=== PATIENT | male | born 1970 | race Caucasian/White ===

== ENCOUNTER 2018-06-22 16:27 | Emergency (ER) | payer MEDICAID, SELFPAY ==
[2018-06-22 16:29] VITALS: BP 118/92; PULSE 91; RESP 17; TEMP 36.7; O2SAT 97; BMI 24.7
--- NOTE | 2018-06-22 16:38 | ED.VISSUMM ---
- ER Visit Summary Date of Service: 06/22/18 Chief Complaint: Abscess History of Present Illness: The patient is a 47 M progressive abscess left axilla over the past week. States had a small one were he popped, however additional informant is larger. Pain with palpation. Previous similar in the past. No fevers. No history of diabetes. No other complaints. Physical Examination: General: Alert and oriented ?3, no acute distress HEENT: Normocephalic, atraumatic. Moist mucosa membranes Neck: supple, nontender. Cardiovascular: Regular rate and rhythm, no murmurs Respiratory: Normal breath sounds, symmetric, no distress Abdomen: Soft, nontender, nondistended Extremities: Nontender, no edema, pulses intact ?4 Neuro: no focal neurological deficits. Skin: Left axilla: 3 x 2 cm slight fluctuant with induration no surrounding erythema. No drainage. Additional 1 cm induration with no surrounding erythema. Mild tender palpation. Test Results: [] Emergency Department Course and Treatment: Patient with 2 abscess, status post incision and drainage ?2. There was no exudative drainage. Loculations were broken and copiously flush. Due to no exudates with inflammatory process, he was placed on Keflex for coverage. Prescriptions written along with Motrin to help with symptoms. Treatment Plan: [] Disposition: Discharge Impression: 1. Left axillary abscess status post incision and drainage This note was generated with [employer] dictation software. It may contain incorrect words, spelling, and punctuation that were not noted in review of the chart prior to signing ED Disposition - Plan for ED Patient: Disposition: Home or Assisted Living Chief Complaint: Abscess Diagnosis: Abscess of left axilla Instructions: ED Abscess IandD Prescriptions: Cephalexin [Keflex] 500 mg PO Q6 #40 capsule Ibuprofen 600 mg PO 4X/DAY #20 tablet Referrals: Derrek Appiah [Primary Care Provider] - 3-5 Days
[2018-06-22] MEDS: Cephalexin 250 MG Capsule 500 MG PO (17:10)
[2018-06-22] MEDS: Ibuprofen 600 MG Tablet PO (17:10)
[2018-06-22 17:15] VITALS: RESP 16
== END 2018-06-22 17:21 | disposition home or self-care (01) ==
PROVIDERS: Emergency Provider Emergency Medicine; Family Provider Family Medicine; PCP Family Medicine
DX: L02.412 Cutaneous abscess of left axilla (principal); Z72.0 Tobacco use
CPT/HCPCS: 10060; 99284

== ENCOUNTER 2018-08-16 13:33 | Emergency (ER) | payer MEDICAID, SELFPAY ==
[2018-08-16 13:34] VITALS: BP 148/71; PULSE 103; RESP 18; TEMP 36.6; O2SAT 98; BMI 24.0
--- NOTE | 2018-08-16 13:43 | RAD_ITS ---
STUDY: X-RAY - RIGHT HAND, ATTENTION FIRST FINGER REASON FOR EXAM: Male, 47 years old. PAIN FOR WEEK; NO INJURY TECHNIQUE: 3 view(s) of the finger were obtained. # of Images: 3 COMPARISON: None. FINDINGS: Normal metacarpal head. Normal metacarpophalangeal joint. Normal proximal phalanx. Normal middle phalanx. Normal distal phalanx. Normal proximal interphalangeal joint. Normal distal interphalangeal joint. RAD/Finger(s) Min 2 Views IMPRESSION: Normal x-ray examination of the finger. Electronically Signed: Drea Adam MD at 14:47 EDT Tel , Service support ,
--- NOTE | 2018-08-16 14:01 | ED.VISSUMM ---
- ER Visit Summary Date of Service: 08/16/18 Chief Complaint: Atraumatic right thumb pain History of Present Illness: The patient is a 47 M who is right-handed presents with atraumatic right thumb pain that he localizes over the proximal phalanx. He states that there are mornings when his thumb is stuck in extension. He states the pain is worst on the radial side. He denies paresthesia, anesthesia motors. He believes it is dislocated. Physical Examination: Vital signs noted and blood pressure is elevated 140/71. There is no evidence of trauma to the right thumb. There is no soft tissue swelling. There is no palpable mass to suggest trigger finger. Passive flexion extension without difficulty. He complains of severe pain, however. There is no subungual hematoma noted. There is no evidence of trauma. Capillary refill is normal. Sensation is normal. Test Results: Three-view x-ray of the thumb was interpreted by me as negative for fracture, foreign body, subluxation or dislocation. There is an accessory bone noted volar surface near the head of the first metacarpal. This is a normal variant. Emergency Department Course and Treatment: To evaluate patient's symptoms and x-ray was obtained. Treatment Plan: Anti-inflammatory since is no contraindication and follow-up with PCP if pain persists. Disposition: Discharged home in stable condition Impression: Atraumatic right thumb pain unknown etiology initial encounter This note was generated with [employer] dictation software. It may contain incorrect words, spelling, and punctuation that were not noted in review of the chart prior to signing ED Disposition - Plan for ED Patient: Disposition: Home or Assisted Living Chief Complaint: Upper Extremity Injury Instructions: ED Acute Pain [facility] Referrals: Derrek Appiah [Primary Care Provider] - Additional Instructions: Recommend taking either 4 Advil every 8 hours or 2 Aleve every 12 hours for the next 3-5 days for your discomfort.
--- NOTE | 2018-08-16 14:05 | ED.DCSUM_ITS ---
- ER Visit Summary Date of Service: 08/16/18 Chief Complaint: Atraumatic right thumb pain History of Present Illness: The patient is a 47 M who is right-handed presents with atraumatic right thumb pain that he localizes over the proximal phalanx. He states that there are mornings when his thumb is stuck in extension. He states the pain is worst on the radial side. He denies paresthesia, anesthesia motors. He believes it is dislocated. Physical Examination: Vital signs noted and blood pressure is elevated 140/71. There is no evidence of trauma to the right thumb. There is no soft tissue swelling. There is no palpable mass to suggest trigger finger. Passive flexion extension without difficulty. He complains of severe pain, however. There is no subungual hematoma noted. There is no evidence of trauma. Capillary refill is normal. Sensation is normal. Test Results: Three-view x-ray of the thumb was interpreted by me as negative for fracture, foreign body, subluxation or dislocation. There is an accessory bone noted volar surface near the head of the first metacarpal. This is a normal variant. Emergency Department Course and Treatment: To evaluate patient's symptoms and x- ray was obtained. Treatment Plan: Anti-inflammatory since is no contraindication and follow-up with PCP if pain persists. Disposition: Discharged home in stable condition Impression: Atraumatic right thumb pain unknown etiology initial encounter This note was generated with [employer] dictation software. It may contain incorrect words, spelling, and punctuation that were not noted in review of the chart prior to signing ED Disposition - Plan for ED Patient: Disposition: Home or Assisted Living Chief Complaint: Upper Extremity Injury Instructions: ED Acute Pain [facility] Referrals: Derrek Appiah [Primary Care Provider] - Additional Instructions: Recommend taking either 4 Advil every 8 hours or 2 Aleve every 12 hours for the next 3-5 days for your discomfort.
[2018-08-16] MEDS: Naproxen 250 MG Tablet 500 MG PO (14:12)
== END 2018-08-16 14:14 | disposition home or self-care (01) ==
PROVIDERS: Emergency Provider Emergency Medicine; Family Provider Family Medicine; PCP Family Medicine
DX: M79.644 Pain in right finger(s) (principal); Z72.0 Tobacco use
CPT/HCPCS: 73140; 99283

== ENCOUNTER 2018-08-27 15:20 | Emergency (ER) | payer MEDICAID, SELFPAY ==
[2018-08-27 15:21] VITALS: BP 121/69; PULSE 82; RESP 16; TEMP 36.7; O2SAT 98; BMI 24.5
--- NOTE | 2018-08-27 16:09 | ED.DCSUM_ITS ---
- ER Visit Summary Date of Service: 08/27/18 Chief Complaint: Left axillary abscess History of Present Illness: The patient is a 47 M left axillary access for approximately 1 week. Patient has a history of prior abscesses. Has a history of a seizure disorder for which he takes Tegretol. He denies any other symptoms. He denies a fever. States initially he had 2 abscesses left axilla and one spontaneously ruptured and is healing on its own. Physical Examination: Well-appearing middle-age male. Vital signs are stable. Afebrile. H EENT exam unremarkable. Neck nontender no lymphadenopathy. Lungs clear to auscultation bilaterally. Heart regular rate and rhythm no murmur. Abdomen soft and nontender. Neurologically is awake and alert with no focal motor deficits. He is moving all 4 extremities are neurovascular intact. Nontender. No edema. His left axilla there is a quarter size area that is consistent with an abscess with fluctuance. Mildly tender. No cellulitis. Superior and medial to that this abscess there is another one that has recently ruptured and is healing. Neurologically he is awake and alert. Test Results: None Emergency Department Course and Treatment: Seizure note. Left axillary abscess. Cleaned using iodine. Locally anesthetized with lidocaine. 2 cm incision. Expressed 3cc purulent material. Packed with gauze. Patient tolerated procedure well. Patient instructed on wound care. Remove packing in 4 days. Treatment Plan: Keflex 4 times daily for 1 week. Return if worse. Disposition: Discharge Impression: Acute left axillary abscess Incision and drainage of abscess by ER physician This note was generated with [employer] dictation software. It may contain incorrect words, spelling, and punctuation that were not noted in review of the chart prior to signing ED Disposition - Plan for ED Patient: Disposition: Home or Assisted Living Chief Complaint: Abscess Instructions: ED Abscess IandD Prescriptions: Cephalexin [Keflex] 500 mg PO Q6 #28 cap Referrals: Derrek Appiah [Primary Care Provider] - 1 Week if not improving Additional Instructions: Warm soaks to the area or hot shower. The antibiotic Keflex 4 times a day till gone. Remove the packing in 4 days.
--- NOTE | 2018-08-27 16:13 | DCINST.ED_ITS ---
ED Disposition - Plan for ED Patient: Disposition: Home or Assisted Living Chief Complaint: Abscess Instructions: ED Abscess IandD Prescriptions: Cephalexin [Keflex] 500 mg PO Q6 #28 cap Referrals: Derrek Appiah [Primary Care Provider] - 1 Week if not improving Additional Instructions: Warm soaks to the area or hot shower. The antibiotic Keflex 4 times a day till gone. Remove the packing in 4 days.
== END 2018-08-27 17:36 | disposition home or self-care (01) ==
PROVIDERS: Emergency Provider Emergency Medicine; Family Provider Family Medicine; PCP Family Medicine
DX: L02.412 Cutaneous abscess of left axilla (principal); G40.909 Epilepsy, unspecified, not intractable, without status epilepticus; Z72.0 Tobacco use
CPT/HCPCS: 10060; 99283

== ENCOUNTER 2018-10-11 10:46 | Emergency (ER) | payer MEDICAID, SELFPAY ==
[2018-10-11 10:47] VITALS: BP 109/80; PULSE 112; RESP 19; TEMP 36.9; O2SAT 100
--- NOTE | 2018-10-11 10:58 | ED.VISSUMM ---
- ER Visit Summary Date of Service: 10/11/18 Chief Complaint: Seizure History of Present Illness: The patient is a 47 M who presents after a seizure. He states he does not know where he was or how long it lasted. He does not know who called 911. He has a history of seizures in the past and takes Tegretol. He states he has been compliant with his medications. He does admit to drinking alcohol occasionally. He has not drank for a couple of days. He states he gets seizures every couple of months. Physical Examination: Vital signs reviewed. HEENT exam unremarkable. Heart is regular rate and rhythm without murmurs. Lungs are clear to auscultation. Abdomen is soft and nontender. Extremities reveal no edema. Skin exam normal. Neurologic exam normal. He is not postictal at this time and will answer all questions. Test Results: Anion gap 17, glucose 122. Creatinine 1.42. Tegretol level 3.4. Alcohol negative Emergency Department Course and Treatment: The patient had no breakthrough seizures in the emergency department. His Tegretol level is slightly subtherapeutic. He will continue his dose at home. He will need to follow-up with his PCP. Treatment Plan: [] Disposition: Discharge Impression: Break through seizure This note was generated with [employer] dictation software. It may contain incorrect words, spelling, and punctuation that were not noted in review of the chart prior to signing ED Disposition - Plan for ED Patient: Chief Complaint: Seizure Referrals: Derrek Appiah [Primary Care Provider] -
[2018-10-11 11:18] LABS: Anion Gap 17 (5-15); BUN 13 mg/dL (7-18); BUN/Creat Ratio 9.2 RATIO (10-20); Calcium,Total 8.9 mg/dL (8.5-10.1); Chloride 110 mmol/L (98-107); Creatinine, Serum 1.42 mg/dL (0.70-1.30); EST Glomerular Filtration Rate 56 mL/min (>60); Est Glom Filt Rate - Afr Amer 68 mL/min (>60); Estimated Creatinine Clearance 67.64 ml/min; Glucose 122 mg/dL (74-106); Potassium 4.3 mmol/L (3.5-5.1); Sodium Level 144 mmol/L (136-145)
[2018-10-11 12:24] LABS: Alcohol, Blood (Medical)-Serum < 3.0 mg/dL; Carbamazepine (Tegretol) 3.4 ug/mL (4.0-12.0)
--- NOTE | 2018-10-11 12:28 | ED.DEP ---
ED Disposition - Plan for ED Patient: Disposition: Home or Assisted Living Chief Complaint: Seizure Instructions: ED Seizure Recurrent Referrals: Derrek Apipah [Primary Care Provider] -
[2018-10-11 12:36] VITALS: BP 113/70; PULSE 76
--- OUTSIDE RECORDS SUMMARY | 2018-11-27 03:39 | XMS RPT_ITS ---
:1970 Author Organization OHIP Care Team Providers Name Role Phone Derrek Appiah Primary Care Unavailable Fred Navarro Attending Unavailable Derrek Appiah Primary Care Unavailable Juan Richter Attending Unavailable Derrek Appiah Primary Care Unavailable Prery Mi Attending Unavailable Derrek Appiah Primary Care Unavailable Mihai Kenyon Attending Unavailable PROBLEMS PROBLEMS No Problem Records FoundPROCEDURES PROCEDURES No Procedure Records FoundRESULTS RESULTS EMERGENCY DEPARTMENT Observed: 10/11/2018 Status: F Source: BANDANA SUMMARY 12:28 PM [facility] Medical Records Department [address] [place] [address] Emergency Department Summary 10/11/18 1058 MR#: [id number] Acct: [id number] Name: DEMOND FORD Rep #: [id number] : 1970 47 From: Fred Navarro MD PCP: Derrek Appiah MD Status: REG ER - ER Visit Summary Date of Service: 10/11/18 Chief Complaint: Seizure History of Present Illness: The patient is a 47 M who presents after a seizure. He states he does not know where he was or how long it lasted. He does not know who called 911. He has a history of seizures in the past and takes Tegretol. He states he has been compliant with his medications. He does admit to drinking alcohol occasionally. He has not drank for a couple of days. He states he gets seizures every couple of months. Physical Examination: Vital signs reviewed. HEENT exam unremarkable. Heart is regular rate and rhythm without murmurs. Lungs are clear to auscultation. Abdomen is soft and nontender. Extremities reveal no edema. Skin exam normal. Neurologic exam normal. He is not postictal at this time and will answer all questions. Test Results: Anion gap 17, glucose 122. Creatinine 1.42. Tegretol level 3.4. Alcohol negative Emergency Department Course and Treatment: The patient had no breakthrough seizures in the emergency department. His Tegretol level is slightly subtherapeutic. He will continue his dose at home. He will need to follow-up with his PCP. Treatment Plan: [] Disposition: Discharge Impression: Break through seizure This note was generated with SuddenValues dictation software. It may contain incorrect words, spelling, and punctuation that were not noted in review of the chart prior to signing ED Disposition - Plan for ED Patient: Chief Complaint: Seizure Referrals: Derrek Appiah [Primary Care Provider] - What to do if you have Problems For any increased pain, shortness of breath, bleeding, nausea or vomiting, chest pain, or any unexpected problems, contact your Primary Care Provider. Call [facility] ([phone]) or report to the closest Emergency Room. Call 911 if necessary. 10/11/18 1228 <Electronically signed by Fred Navarro MD> Date Fred Navarro MD Cosigner Signature (If Indicated): Date CC: Derrek Appiah MD DISCHARGE INSTRUCTION Observed: 10/11/2018 Status: F Source: ANISH 12:28 PM [facility] Medical Records Department [address] [place] [address] Discharge Instruction 10/11/18 1228 MR#: [id number] Acct: [id number] Name: DEMOND FORD Rep #: [id number] : 1970 47 From: Fred Navarro MD PCP: Derrek Appiah MD Status: REG ER ED Disposition - Plan for ED Patient: Disposition: Home or Assisted Living Chief Complaint: Seizure Instructions: ED Seizure Recurrent Referrals: Derrek Appiah [Primary Care Provider] - What to do if you have Problems For any increased pain, shortness of breath, bleeding, nausea or vomiting, chest pain, or any unexpected problems, contact your Primary Care Provider. Call [facility] ([phone]) or report to the closest Emergency Room. Call 911 if necessary. 10/11/18 1228 <Electronically signed by Fred Navarro MD> Date Fred Navarro MD Cosigner Signature (If Indicated): Date CC: Derrek Appiah MD BASIC METABOLIC Collected: 10/11/2018 Status: F Source: ANISH PROFILE (BMP) 10:55 AM [facility] REPOS[facility] TYPE CODE TESTS RESULT OUT OF RANGE REFERENCE UNITS LAB L501.0100 74-106 mg/dL High GLU 122 Result Comment: Fasting Glucose result from 100 to 125 mg/dL suggests IMPAIRED HOMEOSTASIS per A.D.A. criteria. Please note revised GLUCOSE reference range effective 2017. LAB L501.1000 7-18 mg/dL Normal BUN 13 LAB L501.1100 0.70-1.30 mg/dL High CREAT,SERUM 1.42 Result Comment: The validity of the calculated GFR AND GFRAA in patients over 70 years has not been determined. Clinical correlation is essential. LAB L501.1110 >60 mL/min Low EST GFR 56 Result Comment: Non- GFR Calc LAB L501.1115 >60 mL/min Normal EST GFR - AA 68 Result Comment: GFR Calc LAB L501.1255 ml/min Normal Estimated CRCL 67.64 LAB L501.1300 10-20 RATIO Low BUN/CRE 9.2 LAB L501.2200 8.5-10 mg/dL Normal .1 CA 8.9 LAB L501.5300 136-14 mmol/L Normal 5 NA 144 LAB L501.5600 3.5-5. mmol/L Normal 1 K 4.3 Result Comment: Slight Hemolysis, Result may be falsely increased. LAB L501.5900 98-107 mmol/L High CL 110 LAB L501.6100 21.0-32.0 mmol/L Low CO2 17.0 LAB L501.6200 5-15 High GAP 17 Performed By: #### L500.2500 #### [facility] [address] [place], [address] CARBAMAZEPINE (TEGRETOL) Collected: 10/11/2018 Status: F Source: BANDANA 10:55 AM [facility] TYPE CODE TESTS RESULT OUT OF REFERENCE UNITS RANGE LAB L501.7900 4.0-12.0 ug/mL CARBAMAZEPINE Low 3.4 Performed By: #### L501.7900, L501.9100 #### [facility] [address] [place], [address] ALCOHOL, BLOOD Collected: 10/11/2018 Status: F Source: BANDANA (MEDICAL)-SERUM 10:55 AM [facility] TYPE CODE TESTS RESULT OUT OF RANGE REFERENCE UNITS LAB L501.9100 mg/dL Normal SERUM < 3.0 ETOH Result Comment: The serum:whole blood ethanol ratio is approximately 1.14 and varies slightly with hematocrit. Medical Alcohol reference interval and critical value in non-tolerant individuals; 50 - 100 Impairment 100 Intoxication 100 - 250 Severe Poisoning 250 - 400 Deep/possible fatal coma Performed By: #### L501.7900, L501.9100 #### [facility] [address] [place], [address] EMERGENCY DEPARTMENT Observed: 08/27/2018 Status: F Source: BANDANA SUMMARY 5:21 PM [facility] Medical Records Department [address] [place] [address] Emergency Department Summary 08/27/18 1606 MR#: [id number] Acct: [id number] Name: DEMOND FORD Skip Rep #: [id number] : 1970 47 From: Mihai Kenyon MD PCP: Derrek Appiah md Status: REG ER - ER Visit Summary Date of Service: 08/27/18 Chief Complaint: Left axillary abscess History of Present Illness: The patient is a 47 M left axillary access for approximately 1 week. Patient has a history of prior abscesses. Has a history of a seizure disorder for which he takes Tegretol. He denies any other symptoms. He denies a fever. States initially he had 2 abscesses left axilla and one spontaneously ruptured and is healing on its own. Physical Examination: Well-appearing middle-age male. Vital signs are stable. Afebrile. H EENT exam unremarkable. Neck nontender no lymphadenopathy. Lungs clear to auscultation bilaterally. Heart regular rate and rhythm no murmur. Abdomen soft and nontender. Neurologically is awake and alert with no focal motor deficits. He is moving all 4 extremities are neurovascular intact. Nontender. No edema. His left axilla there is a quarter size area that is consistent with an abscess with fluctuance. Mildly tender. No cellulitis. Superior and medial to that this abscess there is another one that has recently ruptured and is healing. Neurologically he is awake and alert. Test Results: None Emergency Department Course and Treatment: Seizure note. Left axillary abscess. Cleaned using iodine. Locally anesthetized with lidocaine. 2 cm incision. Expressed 3cc purulent material. Packed with gauze. Patient tolerated procedure well. Patient instructed on wound care. Remove packing in 4 days. Treatment Plan: Keflex 4 times daily for 1 week. Return if worse. Disposition: Discharge Impression: Acute left axillary abscess Incision and drainage of abscess by ER physician This note was generated with SuddenValues dictation software. It may contain incorrect words, spelling, and punctuation that were not noted in review of the chart prior to signing ED Disposition - Plan for ED Patient: Disposition: Home or Assisted Living Chief Complaint: Abscess Instructions: ED Abscess IandD Prescriptions: Cephalexin [Keflex] 500 mg PO Q6 #28 cap Referrals: Derrek Appiah [Primary Care Provider] - 1 Week if not improving Additional Instructions: Warm soaks to the area or hot shower. The antibiotic Keflex 4 times a day till gone. Remove the packing in 4 days. What to do if you have Problems For any increased pain, shortness of breath, bleeding, nausea or vomiting, chest pain, or any unexpected problems, contact your Primary Care Provider. Call [facility] [facility] ([phone]) or report to the closest Emergency Room. Call 911 if necessary. 08/27/181720 <Electronically signed by Mihai Kenyon MD> Date Mihai Kenyon MD Cosigner Signature (If Indicated): Date CC: md Derrek Appiah DISCHARGE INSTRUCTION Observed: 08/27/2018 Status: F Source: BANDANA 5:21 PM [facility] Medical Records Department [address] [place] [address] Discharge Instruction 08/27/18 1609 MR#: [id number] Acct: [id number] Name: DEMOND FORD Rep #: [id number] : 1970 47 From: Mihai Kenyon MD PCP: Derrek Appiah md Status: REG ER ED Disposition - Plan for ED Patient: Disposition: Home or Assisted Living Chief Complaint: Abscess Instructions: ED Abscess IandD Prescriptions: Cephalexin [Keflex] 500 mg PO Q6 #28 cap Referrals: Derrek Appiah [Primary Care Provider] - 1 Week if not improving Additional Instructions: Warm soaks to the area or hot shower. The antibiotic Keflex 4 times a day till gone. Remove the packing in 4 days. What to do if you have Problems For any increased pain, shortness of breath, bleeding, nausea or vomiting, chest pain, or any unexpected problems, contact your Primary Care Provider. Call [facility] ([phone]) or report to the closest Emergency Room. Call 911 if necessary. 08/27/181720 <Electronically signed by Mihai Kenyon MD> Date Mihai Kenyon MD Cosigner Signature (If Indicated): Date CC: md Derrek Appiah EMERGENCY DEPARTMENT Observed: 08/16/2018 Status: F Source: ANISH SUMMARY 2:06 PM [facility] Medical Records Department [address] [place] [address] Emergency Department Summary 08/16/18 1401 MR#: [id number] Acct: [id number] Name: DEMOND FORD Rep #: [id number] : 1970 47 From: Perry Mi MD PCP: Derrek Appiah md Status: REG ER - ER Visit Summary Date of Service: 08/16/18 Chief Complaint: Atraumatic right thumb pain History of Present Illness: The patient is a 47 M who is right- handed presents with atraumatic right thumb pain that he localizes over the proximal phalanx. He states that there are mornings when his thumb is stuck in extension. He states the pain is worst on the radial side. He denies paresthesia, anesthesia motors. He believes it is dislocated. Physical Examination: Vital signs noted and blood pressure is elevated 140/71. There is no evidence of trauma to the right thumb. There is no soft tissue swelling. There is no palpable mass to suggest trigger finger. Passive flexion extension without difficulty. He complains of severe pain, however. There is no subungual hematoma noted. There is no evidence of trauma. Capillary refill is normal. Sensation is normal. Test Results: Three-view x-ray of the thumb was interpreted by me as negative for fracture, foreign body, subluxation or dislocation. There is an accessory bone noted volar surface near the head of the first metacarpal. This is a normal variant. Emergency Department Course and Treatment: To evaluate patient's symptoms and x-ray was obtained. Treatment Plan: Anti-inflammatory since is no contraindication and follow-up with PCP if pain persists. Disposition: Discharged home in stable condition Impression: Atraumatic right thumb pain unknown etiology initial encounter This note was generated with SuddenValues dictation software. It may contain incorrect words, spelling, and punctuation that were not noted in review of the chart prior to signing ED Disposition - Plan for ED Patient: Disposition: Home or Assisted Living Chief Complaint: Upper Extremity Injury Instructions: ED Acute Pain UKO Referrals: Derrek Appiah [Primary Care Provider] - Additional Instructions: Recommend taking either 4 Advil every 8 hours or 2 Aleve every 12 hours for the next 3-5 days for your discomfort. What to do if you have Problems For any increased pain, shortness of breath, bleeding, nausea or vomiting, chest pain, or any unexpected problems, contact your Primary Care Provider. Call [facility] ([phone]) or report to the closest Emergency Room. Call 911 if necessary. 08/16/18 1406 <Electronically signed by Perry Mi MD> Date Perry Mi MD Cosigner Signature (If Indicated): Date CC: md Derrek Appiah FINGER(S) MIN 2 VIEWS Observed: 08/16/2018 Status: F Source: BANDANA 1:43 PM [facility] Imaging Services [address] [place] [address] Finger(s) Min 2 Views MR#: [id number] Acct: [id number] Name: DEMOND FORD Rep #: [id number] : 1970 M 47 From: Drea Adam MD PCP: Derrek Appiah md Status: DEP ER Study: Finger(s) Min 2 Views Date of Exam: 08/16/18 Exam# [id number] Ordering Dr: Perry Mi MD STUDY: X-RAY - RIGHT HAND, ATTENTION FIRST FINGER REASON FOR EXAM: Male, 47 years old. PAIN FOR WEEK; NO INJURY TECHNIQUE: 3 view(s) of the finger were obtained. # of Images: 3 COMPARISON: None. FINDINGS: Normal metacarpal head. Normal metacarpophalangeal joint. Normal proximal phalanx. Normal middle phalanx. Normal distal phalanx. Normal proximal interphalangeal joint. Normal distal interphalangeal joint. RAD/Finger(s) Min 2 Views IMPRESSION: Normal x-ray examination of the finger. Electronically Signed: Drea Adam MD at 14:47 EDT Tel , Service support , CC: md Derrek Appiah; Perry Mi MD Accounts Payable Processor: Signed EMERGENCY DEPARTMENT Observed: 06/22/2018 Status: F Source: BANDANA SUMMARY 4:59 PM [facility] Medical Records Department [address] [place] [address] Emergency Department Summary 06/22/18 1638 MR#: [id number] Acct: [id number] Name: DEMOND FORD Rep #: [id number] : 1970 47 From: Juan Casillas PCP: Derrek Appiah md Status: PRE ER - ER Visit Summary Date of Service: 06/22/18 Chief Complaint: Abscess History of Present Illness: The patient is a 47 M progressive abscess left axilla over the past week. States had a small one were he popped, however additional informant is larger. Pain with palpation. Previous similar in the past. No fevers. No history of diabetes. No other complaints. Physical Examination: General: Alert and oriented 3, no acute distress HEENT: Normocephalic, atraumatic. Moist mucosa membranes Neck: supple, nontender. Cardiovascular: Regular rate and rhythm, no murmurs Respiratory: Normal breath sounds, symmetric, no distress Abdomen: Soft, nontender, nondistended Extremities: Nontender, no edema, pulses intact 4 Neuro: no focal neurological deficits. Skin: Left axilla: 3 x 2 cm slight fluctuant with induration no surrounding erythema. No drainage. Additional 1 cm induration with no surrounding erythema. Mild tender palpation. Test Results: [] Emergency Department Course and Treatment: Patient with 2 abscess, status post incision and drainage 2. There was no exudative drainage. Loculations were broken and copiously flush. Due to no exudates with inflammatory process, he was placed on Keflex for coverage. Prescriptions written along with Motrin to help with symptoms. Treatment Plan: [] Disposition: Discharge Impression: 1. Left axillary abscess status post incision and drainage This note was generated with SuddenValues dictation software. It may contain incorrect words, spelling, and punctuation that were not noted in review of the chart prior to signing ED Disposition - Plan for ED Patient: Disposition: Home or Assisted Living Chief Complaint: Abscess Diagnosis: Abscess of left axilla Instructions: ED Abscess IandD Prescriptions: Cephalexin [Keflex] 500 mg PO Q6 #40 capsule Ibuprofen 600 mg PO 4X/DAY #20 tablet Referrals: Derrek Appiah [Primary Care Provider] - 3-5 Days What to do if you have Problems For any increased pain, shortness of breath, bleeding, nausea or vomiting, chest pain, or any unexpected problems, contact your Primary Care Provider. Call [facility] ([phone]) or report to the closest Emergency Room. Call 911 if necessary. 06/22/18 1651 <Electronically signed by Juan Casillas> Date Juan Casillas Cosigner Signature (If Indicated): Date CC: md Derrek Appiah ALLERGIES ALLERGIES DATE TYPE / CODE NAME / CODE REACTION SEVERITY SOURCE 10/11/2018 Drug oxycodone Nausea Unknown [facility] Allergy/416 HCl/[id number]( Hospital 257714(SNOM XNORM) Repository ED CT) 10/11/2018 Drug codeine/[id number] Other Unknown [facility] Allergy/416 50(RXNORM) [facility] 618989(SNOM Repository ED CT) ENCOUNTERS ENCOUNTERS ADMIT/DISCHARGE ACCOUNT ADMITTING ENCOUNTER LOCATION SOURCE NUMBER CLASS 10/11/2018/ [id number] Emergency [place] ing:ED Repository 08/27/2018/ [id number] Emergency Anish[address] ing:ED Repository 08/16/2018/ [id number] Emergency [address] ing:ED Repository 06/22/2018/ [id number] Emergency [address] ing:ED Repository PAYERS PAYERS ENCOUNTER GUARANTOR PAYER SUBSCRIBER SOURCE 10/11/2018 DEMOND Valdivia Primary DEMOND Oconnell [id number] [facility] COOLD[facility]: [id number] Center[facility]: Repository [id number]: 330 [id number] [phone] (HP) Date:9600-60-54RB [address] [place] [address] 22977BH: 10/11/2018 Secondary NOT GIVENUNK Anish Insurance:SELF PAY [facility] Number: Effective Repository Date:2018-10-11 08/27/2018 DEMOND Valdivia Primary DEMOND Valdivia Anish [id number] Insurance:[place] COOLDOB: [facility] [id number] Number: Repository [id number]: 330 [id number] [phone] (HP) Date:[id number] [address] [place] [address] 52712UY: 08/27/2018 Secondary NOT GIVENUNK [place] Insurance:SELF PAY [facility] Number: Effective Repository Date:2018-08-27 08/16/2018 DEMOND Valdivia Primary DEMOND Valdivia Anish [id number] Insurance:[place] COOLDOB: [facility] [id number] Number: Repository [id number]: 330 [id number] [phone] (HP) Date:4924-01-92GU [address] [place] [address] 78134KJ: 08/16/2018 Secondary NOT GIVENUNK Dal[place] Insurance:SELF PAY [facility] Number: Effective Repository Date:2018-08-16 06/22/2018 Demond [id number] Primary Demond SanchezB: Dalhart Sr Insurance:ALEKSANDRA [id number] [address]Abv: PLANPolicy Number: Repository [id number] () Date:[id number] [address]GA: 06/22/2018 Secondary NOT GIVENUNK Dalhart Insurance:SELF PAY [facility] Number: Effective Repository Date:2018-06-22
== END 2018-10-11 12:37 | disposition home or self-care (01) ==
PROVIDERS: Emergency Provider Emergency Medicine; Family Provider Family Medicine; PCP Family Medicine
DX: G40.909 Epilepsy, unspecified, not intractable, without status epilepticus (principal); Z72.0 Tobacco use
CPT/HCPCS: 80048; 80156; 80320; 99285; A4216; G0480

== ENCOUNTER 2019-10-30 02:00 | Inpatient (IN) | payer MEDICAID, SELFPAY ==
[2019-10-30] VITALS (29 sets, daily range): BP systolic 52–155; BP diastolic 31–134; PULSE 0–121; RESP 14–143; TEMP 33.2–35.6; O2SAT 74–99; BMI 25.1; BMI 27.4; BMI 27.5
--- NOTE | 2019-10-30 02:14 | RAD_ITS ---
STUDY: X-RAY CHEST REASON FOR EXAM: Male, 48 years old. Cardiac arrest, endotracheal tube placement. TECHNIQUE: AP portable chest. COMPARISON: None. FINDINGS: Endotracheal tube tip 3.5 cm above the triny. 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 The lungs are clear and expanded. There is no demonstrated pleural abnormality. No pneumothorax. Normal size heart. Normal mediastinum and [place]. Normal visualized pulmonary arteries. Normal visualized aortic arch and descending thoracic aorta. Normal visualized thoracic spine. Normal visualized ribs, clavicles, and shoulders. There is no demonstrated abnormality of the visualized soft tissue structures of the upper abdomen. RAD/Chest 1 View (Portable) IMPRESSION: Endotracheal tube tip is in its expected location. No acute cardiopulmonary disease. Electronically Signed: Alex Medellin MD at 2:50 EST , Service support ,
--- NOTE | 2019-10-30 02:14 | CT_ITS ---
We are attempting to reach an attending provider to discuss findings. An addendum with communication details will be sent when the communication is complete. STUDY: CT BRAIN WITHOUT CONTRAST REASON FOR EXAM: Male, 48 years old. Cardiac arrest for 18 minutes. Unresponsive. Seizure. RADIATION DOSAGE (If Supplied By Facility): CTDIvol = ( 44.99 ) mGy, DLP = ( 812.98 ) mGycm TECHNIQUE: Transaxial CT imaging of the brain was performed without administration of intravenous contrast material. Individualized dose optimization techniques were used for this CT. COMPARISON: No relevant priors. FINDINGS: Normal soft tissue structures. Normal calvarium. Absence of levy matter-white matter differentiation compatible with diffuse cerebral edema. Sulci are effaced. Ventricles are small for patient''s age. Fourth ventricle well visualized. Normal basal ganglia and thalami. Normal brainstem. Normal cerebellum. There is no intracranial hemorrhage. There are no findings of an acute ischemic infarction. Mild ethmoid sinus mucosal thickening. Air-fluid levels within the maxillary sinuses right greater than left as well as the sphenoid sinuses. Mastoid air cells are well aerated. CT/Brain/Head without Contrast IMPRESSION: Diffuse cerebral edema likely secondary to hypoxia. Acute versus chronic sinusitis. Electronically Signed: Alex Medellin MD at 3:27 EST , Service support ,
--- NOTE | 2019-10-30 02:14 | EKG12_ITS ---
Test Reason : Blood Pressure : / mmHG Vent. Rate : 101 BPM Atrial Rate : 101 BPM P-R Int : 196 ms QRS Dur : 114 ms QT Int : 368 ms P-R-T Axes : 070 029 091 degrees QTc Int : 477 ms Sinus tachycardia Right atrial enlargement Marked ST abnormality, possible inferior lateral subendocardial injury Abnormal ECG Confirmed by SHANTEL CASANOVA, SABINE ([id number]), makeup editor NOEMY JESUS ([id number]) on 10/31/2019 2:17:33 PM Referred By: Kareem Forrest Confirmed By:SABINE FUNES MD
--- NOTE | 2019-10-30 02:15 | ED.RN ---
0211 1 AMP BICARB GIVEN BY DALIA CANTUAGLDorothy. TOTAL OF 3 BICARB.
--- NOTE | 2019-10-30 02:16 | ED.RN ---
3RD LITER OF NS STARTED.
--- NOTE | 2019-10-30 02:17 | ED.VIS.GEN ---
History of Present Illness Chief Complaint: CPR Informant: Supervisor Mapping Narrative: Medics stated that they got a call for altered mental status unresponsive patient when they arrived the patient was unconscious in asystole. They did CPR for 18 minutes. They gave 3 rounds of epinephrine. They were able to get return of circulation. Blood sugar was greater than 300. EMS stated that members in the house stated that he came inside smoked a cigarette and drank a beer. They stated that he took his Tegretol for his history of seizures and stated he was going to lay down to go to sleep. They stated that they noticed he was not sleeping and unconscious and unable to be awakened. EMS was then called. They only no history of seizures for which he takes Tegretol. Patient unable to give history secondary to cardiac arrest. Past Medical History - Allergies and Home Meds Allergies/Adverse Reactions: Allergies codeine Adverse Reaction (Verified 10/11/18 10:51) Other oxycodone HCl [From Percocet] Adverse Reaction (Verified 10/11/18 10:51) Nausea Primary Care Physician: Derrek Appiah [Primary Care Provider] - Prior records reviewed: Yes Past Medical History: - - Seizure disorder Surgical History: - - Unable to obtain secondary to mental status Lives: - - Unknown Smoking Status: Current every day smoker Drugs: - - Unknown Review of Systems ROS: Unable to Obtain Physical Exam Vital Signs/Narrative: Vital Signs Temp Pulse Pulse Resp Resp BP BP 10/30/19 02:16 76 16 10/30/19 02:09 100 18 155/134 H 10/30/19 02:03 121 H 16 155/134 H 10/30/19 02:01 96.0 F L Pulse Ox 10/30/19 02:16 93 10/30/19 02:09 94 10/30/19 02:03 10/30/19 02:01 Inital Vital Signs reviewed: Yes - Patient arrived with no pulse being bagged with no spontaneous respirations General: - - Patient has GCS of 3 cyanotic with fixed pupils Head: Normocephalic, Atraumatic ENT: - - Patient has brown liquid in his oropharynx Neck: - - Patient is pulseless Cardiovascular: - - No pulse Respiratory: - - No spontaneous breathing. Good breath sounds bilaterally with bagging Abdomen: Nondistended Back: Normal Inspection Extremities: No edema Skin: Cyanosis Neurological: - - GCS 3 Diagnostic/Tx/Re-eval - Medical Decision Making ACLS began on arrival. Patient given epinephrine. Patient given 3 A of bicarbonate and 1 amp of calcium. Dextrose follow-up as the patient is hyperglycemic upon arrival per EMS. On next rhythm check the patient has a bounding spontaneous carotid pulse. EKG obtained shows sinus rhythm with ST depressions anterolateral. No STEMI. Cardiology was at the bedside Dr. Thao who agreed no STEMI pattern. IV fluids given. Patient intubated easily with 7.5 ET tube 23 at the lips with good color change and good breath sounds bilateral. Patient will be started on Levophed. Lab work CT head chest x-ray obtained. Hernandez catheter placed. CT head shows diffuse anoxic edema with loss of levy-white matter differentiation. Chest x-ray shows ET tube in proper place. Patient was started on a bicarb drip for a pH of 7.0. Changes were made to his ventilator settings after initial ABG. Patient has suspected shock liver on his labs. He does have an elevation in his creatinine likely secondary to hepatorenal shock. The patient has not needed throughout his stay in the emergency department any sedation. His pupils are fixed and dilated and he shows no movements. His GCS remains 3. A left-sided subclavian central line was placed without difficulty. Post procedure x-ray shows line in place without pneumothorax. Initial central line was attempted on the right side and then left side using sterile technique ultrasound-guided Seldinger. But there was resistance to the wire insertion on each side so there was location was aborted there repositioning techniques. The patient has been cooled throughout his stay. Case was discussed with the hospitalist as well the and as well as the glost tile shader. Family would like us to continue care at this time. Family would like him to be DO NOT RESUSCITATE Comfort Care arrest if his heart was to stop again. Urine toxicology shows marijuana. Family stated that he does have uncontrolled seizures. The patient has had no seizure activity here. Is unclear what caused his anoxia. - Critical Care Time Critical care time (excluding procedures): 75-104 minutes ED Disposition - Plan for ED Patient: Disposition: Acute Care Hospital [facility] Diagnosis: Cardiac arrest, Respiratory failure, Anoxic brain injury, Coma, Metabolic acidosis with respiratory acidosis
[2019-10-30] MEDS: 0.9% Normal Saline 1,000 ML 1000 ML IV (02:26)
[2019-10-30] MEDS: Norepinephrine 8 mg/250 mL 0.9% NS 9.4 MG CONT INF (02:26)
[2019-10-30 02:27] LABS: Absolute Neutrophil Count 2.8 X10^3/uL (2.0-7.7); Basophil# 0.04 X10^3/uL; Basophil% 0.5 % (0-1); Eosinophils% 1.4 % (0-5); Hematocrit 38.6 % (40-54); Hemoglobin 11.7 g/dL (13.0-16.5); Lymphocyte % 48.1 % (19-41); Mean Corp Hgb Conc 30.3 g/dL (32-36); Mean Corpuscular Hgb 31.2 pg (27.0-32.0); Mean Corpuscular Volume 102.9 fL (80-94); Mean Platelet Vol. 10.4 fl (6.2-12.0); Monocyte# 0.62 X10^3/uL; Monocyte% 8.5 % (0-10); NRBC Flagged by Analyzer 0 % (0-5); Neutrophil # 2.83 X10^3/uL (2.7-7.7); Neutrophil % 38.9 % (47-70); Platelet Count 174 K/mm3 (150-450); RBC Distribution Width CV 13.2 % (11.6-14.6); RBC Distribution Width SD 49.9 fl (35.1-43.9); Red Blood Count 3.75 M/mm3 (4.6-6.2); White Blood Count 7.3 K/mm3 (4.4-11.0)
--- NOTE | 2019-10-30 02:27 | ED.RN ---
COOLING PACKS TO AXILLA, GROIN.
[2019-10-30 02:31] LABS: International Normalized Ratio 1.4; Prothrombin Time (Protime)PT. 16.7 SECONDS (11.7-14.9)
[2019-10-30 02:32] LABS: Partial Thromboplast Time 46.4 Seconds (24.1-36.2)
--- NOTE | 2019-10-30 02:36 | ED.RN ---
NYA GUTIERREZ RN, TABBY HERNANDEZ RN, BRAULIO ANNA RN, HOMERO YEN RN, AGAPITO COFFEY ELECTRIC TRIPPER MACHINE OPERATOR, MUNDO RT AND DARIUS RT. DR. ACOSTA, TRICE RN, PAULA AND FROYLAN FROM SEWER LINE REPAIRER. DR. LAMB.
--- NOTE | 2019-10-30 02:43 | ED.RN ---
TO CT WITH TABBY HERNANDEZ AND BRAULIO ANNA.
[2019-10-30 02:49] LABS: ALB/GLOB Ratio 1.1 RATIO (0.9-2.4); AST(SGOT) 513 U/L (15-37); Alanine Aminotransfer ALT/SGPT 621 U/L (16-61); Albumin, Serum 3.7 g/dL (3.2-5.0); Alkaline Phosphatase 137 U/L (45-117); Anion Gap 20 (5-15); BUN 12 mg/dL (7-18); BUN/Creat Ratio 6.1 RATIO (10-20); Chloride 103 mmol/L (98-107); Creatinine, Serum 1.98 mg/dL (0.70-1.30); EST Glomerular Filtration Rate 38 mL/min (>60); Est Glom Filt Rate - Afr Amer 46 mL/min (>60); Estimated Creatinine Clearance 46.09 ml/min; Globulin 3.4 g/dL (2.2-4.2); Glucose 422 mg/dL (74-106); Potassium 4.8 mmol/L (3.5-5.1); Protein, Total 7.1 g/dL (6.4-8.2); Sodium Level 140 mmol/L (136-145); Total Bilirubin < 0.10 mg/dL (0.20-1.00)
--- NOTE | 2019-10-30 02:49 | ED.RN ---
CALL MEDICATIONS DURING CODE WERE FLUSHED PER PROTOCOL.
[2019-10-30 03:03] LABS: Amphetamine Urine VISTA NEGATIVE (<1000 ng/mL); Barbiturate Urine VISTA NEGATIVE (< 200 ng/mL); Benzodiazepine Urine VISTA NEGATIVE (< 200 ng/mL); Cocaine Urine VISTA NEGATIVE (< 300 ng/mL); Ecstacy Urine VISTA NEGATIVE (< 500 ng/mL); Methadone Urine VISTA NEGATIVE (< 300 ng/mL); PCP Urine VISTA NEGATIVE (< 25 ng/mL); THC Urine VISTA POSITIVE (< 50 ng/mL); Vista UDS pH Range 6
[2019-10-30] MEDS: 0.9% Normal Saline 1,000 ML 999 ML IV (03:08)
--- NOTE | 2019-10-30 03:10 | CPS ---
Critical ABG values read to Dr. Jones. pH 7.03 PcO2 76.2
--- NOTE | 2019-10-30 03:12 | ED.RN ---
spoke with patients mother at this time. She will be on her way to the hospital
[2019-10-30 03:16] LABS: Allen Test POS; Base Excess -10 mmol/L (-2 to +2); Bicarbonate 20.6 mmol/L (22-26); Blood Gas Specimen Type ART; FI02 100; Mode A-C; O2 Delivery Device Vent; PEEP 8; PO2 65 mmHG (75-100); RR 16; SITE R Radial; SO2 80 % (95-99); Time Given 300; Total Carbon Dioxide 23 mmol/L; Vt 500; pCO2 76.2 mmHg (35-45); pH 7.04 (7.35-7.45)
--- NOTE | 2019-10-30 03:23 | ED.RN ---
ATTEMPTED OG/NG SEVERAL TIMES WITHOUT SUCCESS. WILL TRY AGAIN AFTER CENTRAL LINE IS COMPLETED. DR. LAMB AT BEDSIDE NOW ATTEMPTING TRIPLE LUMEN.
--- NOTE | 2019-10-30 03:47 | ED.RN ---
DR. LAMB ATTEMPTING CENTRAL LINE ON PTS LEFT NECK.
--- NOTE | 2019-10-30 04:00 | RAD_ITS ---
STUDY: X-RAY CHEST REASON FOR EXAM: Male, 48 years old. Line placement. TECHNIQUE: AP portable chest. COMPARISON: October 30, 2019. FINDINGS: Interval placement of a left subclavian central line with the tip in superior vena cava. No pneumothorax. Endotracheal tube tip in satisfactory position. Heart is not enlarged. Subtle density left lung base probably representing subsegmental atelectasis. No effusions. No pneumothorax. tar chaser overlies right hemithorax. There is no demonstrated abnormality of the visualized soft tissue structures of the upper abdomen. RAD/CXR for Line Placement IMPRESSION: Endotracheal tube and left-sided central line in their expected location. No pneumothorax. No acute cardiopulmonary disease. Probable left basilar subsegmental atelectasis. Developing pneumonia is a consideration. Electronically Signed: Alex Medellin MD at 4:29 EST , Service support ,
--- NOTE | 2019-10-30 04:20 | PCM.HP.STD ---
Problem List (1) Cardiac arrest Status: Acute (2) Respiratory failure Status: Acute (3) Anoxic brain injury Status: Acute (4) Coma Status: Acute (5) Metabolic acidosis with respiratory acidosis Status: Acute History of Present Illness Date of Admission: 10/30/19 Chief Complaint: cardiac arrest The patient is a 48 year old M with a significant history of alcoholism and seizure disorder who presented to the emergency department with cardiac arrest. His parents dropped him off at his friend's place at 12 noon. At that time he had no complaints. While at a friend's house he drank beer; smoked cigarettes and took his seizure pill. Later on he went to lie down but he could not be aroused. Paramedics came and did CPR for about 18 minutes. Patient received 3 rounds of epinephrine. ROSC was achieved. Patient was brought to emergency department. At the emergency department patient lost his pulse again. ACLS was done with patient receiving 1 round of epinephrine. ROSC was achieved. Patient was intubated. Central line was placed by emergency department doctor. CT showed diffuse cerebral edema likely secondary to hypoxia. Past Medical History Medical History: Medical History (Last Updated 10/30/19 @ 05:35 by Kareem Forrest MD) Seizure disorder G40.909 Allergies codeine Adverse Reaction (Verified 10/11/18 10:51) Other oxycodone HCl [From Percocet] Adverse Reaction (Verified 10/11/18 10:51) Nausea Home Medications: Ambulatory Orders Medication Instructions Recorded Carbamazepine [Tegretol] 400 mg PO BIDCM 03/08/14 Surgical History: - - His mother denied any surgical history Lives: With Family, - Smoking Status: Current every day smoker Tobacco Use: Cigarettes Alcohol: Heavy - Patient used to drink heavily when he was not living with his mother and stepfather. Now patient lives with her and so patient does not drink heavily. Drugs: - - Her mother believe the patient was using drugs when patient was living with his girlfriend. The exact drug his mother does not know. - *Family History Maternal History Items: Diabetes, Heart Disease Paternal History Items: Heart Disease Review of Systems Unable to obtain accurate/complete ROS d/t: Comatose. Per family patient did not report of any symptoms VTE Information - Inpt Only VTE Present on Admission: No VTE Mechan Device Prophylaxis: None VTE Pharm Prophylaxis ordered?: Yes Patient Problems: Active and Suspected Problems (Last Updated 10/30/19 @ 05:35 by Kareem Forrest MD) Cardiac arrest (Acute) Respiratory failure (Acute) Anoxic brain injury (Acute) Coma (Acute) Metabolic acidosis with respiratory acidosis (Acute) - Physical Exam Vitals/I&O's: Vital Signs Temp Pulse Resp BP Pulse Ox 91.7 F L 86 18 72/51 L 82 10/30/19 03:46 10/30/19 04:03 10/30/19 03:46 10/30/19 04:03 10/30/19 04:03 Oxygen Delivery Method Mechanical Ventilator Weight: 79.379 kg Body Mass Index (BMI) 25.1 Finger Stick Blood Glucose 82 Intake and Output for Last 24 Hours 10/28/19 10/29/19 10/30/19 23:59 23:59 23:59 Intake Total Balance General: - - Comatose HEENT: Atraumatic, Normocephalic, - - Dilated fixed pupils. Neck: No Nodes, Trachea Midline Lungs: Clear to auscultation, Normal air movement Cardiovascular: Regular rate, Normal S1, Normal S2, No murmurs Abdomen: Bowel Sounds Present, Soft Extremities: No edema, Capillary Refill Less than 3 Seconds Skin: No rashes, No breakdown Musculoskeletal: No Tenderness to Palpation of Joints or Extremities Neurological: - - No corneal reflex. Patient is not breathing over the vent. No gag reflex. Doll's eyes. Psych/Mental Status: - - Comatose Laboratory Results 10/30/19 02:00: WBC 7.3, RBC 3.75 L, Hgb 11.7 L, Hct 38.6 L, MCV 102.9 H, MCH 31.2, MCHC 30.3 L, RDW Std Deviation 49.9 H, RDW Coeff of Boby 13.2, Plt Count 174, MPV 10.4, Immature Gran % (Auto) 2.600 H, Neut % (Auto) 38.9 L, Lymph % (Auto) 48.1 H, Mccone % (Auto) 8.5, Eos % (Auto) 1.4, Baso % (Auto) 0.5, Absolute Neuts (auto) 2.8, Absolute Lymphs (auto) 3.50, Nucleated RBC % 0 10/30/19 02:00: PT 16.7 H, INR 1.4, APTT 46.4 H 10/30/19 02:00: Sodium 140, Potassium 4.8, Chloride 103, Carbon Dioxide 17.0 L, Anion Gap 20 H, BUN 12, Creatinine 1.98 H, Estim Creat Clear Calc 46.09, Est GFR (MDRD) Af Amer 46 L, Est GFR (MDRD) Non-Af 38 L, BUN/Creatinine Ratio 6.1 L, Glucose 422 H, Calcium 9.0, Total Bilirubin < 0.10 L, AST 513 H, ALT 621 H, Alkaline Phosphatase 137 H, Troponin I < 0.015, Total Protein 7.1, Albumin 3.7, Globulin 3.4, Albumin/Globulin Ratio 1.1 10/30/19 02:35: Urine Opiates Screen NEGATIVE, Urine Methadone Screen NEGATIVE, Ur Barbiturates Screen NEGATIVE, Ur Phencyclidine Scrn NEGATIVE, Ur Amphetamines Screen NEGATIVE, U Methamphetamin-MDMA NEGATIVE, U Benzodiazepines Scrn NEGATIVE, Urine Cocaine Screen NEGATIVE, U Cannabinoids Screen POSITIVE H, Ur Drug Screen Comment 10/30/19 03:08: Specimen Type ART, Sample Site R Radial, pH 7.04 L*, Bicarbonate Actual 20.6 L, POC Total CO2 23, Base Excess -10 L, O2 Saturation 80 L, O2 % 100, ABG pCO2 76.2 H*, ABG pO2 65 L, Reji Test POS, Respiration Rate 16, O2 Delivery Device Vent, Vent Mode A-C, Tidal Volume 500, POC PEEP 8, Blood Gas Notified Whom ED MD, Blood Gas Notified Time 300 Current Medications Norepinephrine Bitartrate 8 mg (/ Sodium Chloride) 250 mls @ 9.375 mls/hr CONT INF .[id number] SHELIA; Protocol Last Titration: 10/30/19 03:10 Dose: 20 mcg/min, 37.5 mls/hr Documented by: Sodium Bicarbonate 150 meq/ (Dextrose) 1,150 mls @ 150 mls/hr IV .[id number] SHELIA Assessment/Plan All Active Problems (Last Updated 10/30/19 @ 05:35 by Kareem Forrest MD) Cardiac arrest (Acute) Respiratory failure (Acute) Anoxic brain injury (Acute) Coma (Acute) Metabolic acidosis with respiratory acidosis (Acute) The patient is a 48 year old M with a significant history of alcoholism and seizure disorder who presented to the emergency department with cardiac arrest and who is in coma at this time with diffuse cerebral edema. Anoxic brain injury secondary to likely cardiac arrest. Etiology is unclear at this time. However patient might have had a seizure leading to hypoxia leading to cardiac arrest. Drug screen was negative except for THC. Intubated at the emergency department. Per family is okay for patient to remain intubated at this time. But if patient is to code again family does not want any further heroic measures of CPR. Emergent department doctor discussed code status with the patient's mother and patient's step father in my presence. Will get echocardiogram. Will start patient on Keppra. We will get electrolytes including magnesium and phosphate. Consider neurology consult. Consider life bank consult. Case was discussed with sanitary landfill operator. Lactic acid of 7.2. Likely secondary to cardiogenic shock. Trend EKG did not show any acute infarct. Elevated liver enzymes Likely secondary to cardiogenic shock from cardiac arrest. Trend CMP. Metabolic acidosis and respiratory acidosis. Patient was started on bicarbonate drip at the emergency department; continued. Trend CMP. Hyperglycemia Unclear whether patient is diabetic. On presentation her blood glucose was severely elevated. We will get Accu-Chek every 4 hours and will cover with correction scale insulin. Patient is n.p.o. for now. DVT prophylaxis Subcutaneous Lovenox. Code Visit Inpatient E&M: [id number] Init Hosp L3
[2019-10-30 04:47] LABS: Lactic Acid 7.2 mmol/L (0.4-1.9)
[2019-10-30 04:55] LABS: Alcohol, Blood (Medical)-Serum < 3.0 mg/dL
--- NOTE | 2019-10-30 05:37 | RAD_ITS ---
STUDY: X-RAY - ABDOMEN/PELVIS REASON FOR EXAM: Male, 48 years old. OG TUBE PLACEMENT TECHNIQUE: Two AP supine views of the abdomen and pelvis. COMPARISON: None. FINDINGS: There is a nasogastric or orogastric tube with its tip and sidehole in the gastric fundus. There is prominent small and large bowel gas, which may represent ileus. There is no evidence for mechanical bowel obstruction. There is no demonstrated free abdominal air. The visualized liver, spleen and kidneys are grossly normal in size and morphology. Normal soft tissue structures. Normal visualized osseous structures. RAD/Abdomen Single View (Portable) IMPRESSION: Nasogastric or orogastric tube is in adequate position. Prominent bowel gas with a nonspecific nonobstructive pattern. Ileus may be present. Electronically Signed: Faustino Sears MD at 7:17 EST , Service support ,
--- NOTE | 2019-10-30 05:47 | NURSING ---
Pt is on the ventilator and is unable to understand, Family was shown call light and oriented to the room
--- NOTE | 2019-10-30 06:27 | PCM.CON.CC ---
Capacity - Capacity Assessment Tool Can the patient make a choice & communicate that choice?: No Can the patient understand benefits, risks and alternatives?: No Can the patient make a logical, rational choice?: No Is there an impending, emergent risk to the patient?: Yes Is there a Surrogate Available?: Yes Reason for Consult Date of Consultation: 10/30/19 Reason for Consultation: Status post cardiac arrest/anoxic brain injury/respiratory failure History of Present Illness: The patient is a 48-year-old male, with a history as outlined below, who presented to the emergency department via EMS after being found unresponsive by family friends. The patient was apparently at a friend's house and lay down to sleep after reporting that he did not feel well. A short time later, a friend went into check on him and found him unresponsive. The patient does have a known history of epilepsy, diagnosed in childhood. In addition, the patient is a lifelong smoker. He has no other chronic medical conditions, per the patient's mother report. She did state that she is not aware of any recent seizure activity. He is apparently compliant with the use of his antiepileptic medications. On arrival to the emergency department, the patient was pulseless. ACLS was once and is been reinitiated. The patient received 1 round of epinephrine along with bicarbonate and calcium. Return of spontaneous circulation was noted. A definitive airway was placed in the emergency department. A left subclavian line was also placed. Initial laboratory evaluation revealed evidence of macrocytic anemia. INR was noted to be 1.4. Initial arterial blood gas revealed a pH of 7.04 with a corresponding PCO2 of 76 and PO2 of 65. Chemistry profile was notable for a bicarbonate of 17 along with a acute kidney injury with a creatinine of 1.98. Lactate was elevated to 7.2. AST and ALT were increased to 513 and 621, respectively. Initial troponin was negative. Toxicology screen was positive for marijuana. Alcohol level was negative. CT head revealed loss of levy/white matter differentiation compatible with diffuse cerebral edema. The patient was started on levophed due to hemodynamic instability. He was subsequently admitted to the MICU for further management. On my review of the patient this morning his mother was present at the bedside. [facility] had already been contacted and informed us that the patient was not a candidate for organ donation. I personally reviewed the patients laboratory and imaging studies with the family present at the bedside. Options for moving for with the patients care was discussed at length and included continued aggressive life support measures versus a transition to comfort care measures. Following my discussion, the patient's family made it known to me that they did not wish to continue aggressive life support measures and instead wished to initiate comfort care measures and perform palliative extubation. The patient was then made DNR comfort care and palliative withdrawal of all life support was undertaken. The patient then peacefully with family at the bedside. Time of occurred at 7:18 am on 10/30/2019. Past Medical History Medical History: Medical History (Last Updated 10/30/19 @ 05:35 by Kareem Forrest MD) Seizure disorder G40.909 Allergies codeine Adverse Reaction (Verified 10/11/18 10:51) Other oxycodone HCl [From Percocet] Adverse Reaction (Verified 10/11/18 10:51) Nausea Home Medications: Ambulatory Orders Medication Instructions Recorded Carbamazepine [Tegretol] 400 mg PO BIDCM 03/08/14 Surgical History: - - His mother denied any surgical history Lives: With Family, - Smoking Status: Current every day smoker Tobacco Use: Cigarettes Alcohol: Heavy - Patient used to drink heavily when he was not living with his mother and stepfather. Now patient lives with her and so patient does not drink heavily. Drugs: - - Her mother believe the patient was using drugs when patient was living with his girlfriend. The exact drug his mother does not know. - *Family History Maternal History Items: Diabetes, Heart Disease Paternal History Items: Heart Disease Review of Systems Unable to obtain accurate/complete ROS d/t: Due to current intubation and mechanical ventilation status. Objective: The patient's most recent lab work, culture data and imaging studies have all been personally reviewed. - Physical Exam Vitals/I&O's: Vital Signs Temp Pulse Resp BP Pulse Ox 92.3 F L 90 14 74/52 L 84 10/30/19 05:59 10/30/19 05:59 10/30/19 05:59 10/30/19 05:59 10/30/19 05:59 Oxygen Delivery Method Mechanical Ventilator Weight: 175 lb 4.28 oz Body Mass Index (BMI) 27.4 Finger Stick Blood Glucose 82 Intake and Output for Last 24 Hours 12/31/19 01/01/20 01/02/20 23:59 23:59 23:59 Intake Total Balance General: - - Intubated and mechanically ventilated. No sedation. HEENT: Atraumatic, Normocephalic, - - Fixed and dilated pupils Oral: No Gingival or Mucosal Lesions/ Ulcerations, - - Endotracheal and OG tubes in place Neck: Supple, No Nodes, Trachea Midline, - - Central venous catheter in place Lungs: No rhonchi, No wheeze, No rales, Diminished, - - The patient is currently breathing at the ventilator set rate. He does not initiate spontaneous breaths on CPAP. Cardiovascular: Regular rate, Regular Rhythm, Normal S1, Normal S2, No murmurs Abdomen: Soft, Hypoactive Bowel Sounds Extremities: No clubbing, No cyanosis, No edema Skin: No breakdown Musculoskeletal: No Muscle Wasting Lymphatic: No Cervical, Supraclavicular, or Inguinal Adenopathy Neurological: - - The patient is comatose and nonresponsive to both verbal, tactile and painful stimulation. There is no gag reflex present. Labs (Last 48 Hours) 10/30/19 10/30/19 10/30/19 02:00 02:00 02:00 WBC 7.3 RBC 3.75 L Hgb 11.7 L Hct 38.6 L MCV 102.9 H MCH 31.2 MCHC 30.3 L RDW Std Deviation 49.9 H RDW Coeff of Boby 13.2 Plt Count 174 MPV 10.4 Immature Gran % (Auto) 2.600 H Neut % (Auto) 38.9 L Lymph % (Auto) 48.1 H [place] % (Auto) 8.5 Eos % (Auto) 1.4 Baso % (Auto) 0.5 Absolute Neuts (auto) 2.8 Absolute Lymphs (auto) 3.50 Nucleated RBC % 0 PT 16.7 H INR 1.4 APTT 46.4 H Specimen Type Sample Site pH Bicarbonate Actual POC Total CO2 Base Excess O2 Saturation O2 % ABG pCO2 ABG pO2 Reji Test Respiration Rate O2 Delivery Device Vent Mode Tidal Volume POC PEEP Blood Gas Notified Whom Blood Gas Notified Time Sodium 140 Potassium 4.8 Chloride 103 Carbon Dioxide 17.0 L Anion Gap 20 H BUN 12 Creatinine 1.98 H Estim Creat Clear Calc 46.09 Est GFR (MDRD) Af Amer 46 L Est GFR (MDRD) Non-Af 38 L BUN/Creatinine Ratio 6.1 L Glucose 422 H Lactic Acid Calcium 9.0 Phosphorus Magnesium Total Bilirubin < 0.10 L AST 513 H ALT 621 H Alkaline Phosphatase 137 H Troponin I < 0.015 Total Protein 7.1 Albumin 3.7 Globulin 3.4 Albumin/Globulin Ratio 1.1 Urine Opiates Screen Urine Methadone Screen Ur Barbiturates Screen Ur Phencyclidine Scrn Ur Amphetamines Screen U Methamphetamin-MDMA U Benzodiazepines Scrn Urine Cocaine Screen U Cannabinoids Screen Ur Drug Screen Comment Ethyl Alcohol 10/30/19 10/30/19 10/30/19 02:00 02:35 03:08 WBC RBC Hgb Hct MCV MCH MCHC RDW Std Deviation RDW Coeff of Boby Plt Count MPV Immature Gran % (Auto) Neut % (Auto) Lymph % (Auto) [place] % (Auto) Eos % (Auto) Baso % (Auto) Absolute Neuts (auto) Absolute Lymphs (auto) Nucleated RBC % PT INR APTT Specimen Type ART Sample Site R Radial pH 7.04 L* Bicarbonate Actual 20.6 L POC Total CO2 23 Base Excess -10 L O2 Saturation 80 L O2 % 100 ABG pCO2 76.2 H* ABG pO2 65 L Reji Test POS Respiration Rate 16 O2 Delivery Device Vent Vent Mode A-C Tidal Volume 500 POC PEEP 8 Blood Gas Notified Whom ED Blood Gas Notified Time 300 Sodium Potassium Chloride Carbon Dioxide Anion Gap BUN Creatinine Estim Creat Clear Calc Est GFR (MDRD) Af Amer Est GFR (MDRD) Non-Af BUN/Creatinine Ratio Glucose Lactic Acid Calcium Phosphorus Pending Magnesium Pending Total Bilirubin AST ALT Alkaline Phosphatase Troponin I Total Protein Albumin Globulin Albumin/Globulin Ratio Urine Opiates Screen NEGATIVE Urine Methadone Screen NEGATIVE Ur Barbiturates Screen NEGATIVE Ur Phencyclidine Scrn NEGATIVE Ur Amphetamines Screen NEGATIVE U Methamphetamin-MDMA NEGATIVE U Benzodiazepines Scrn NEGATIVE Urine Cocaine Screen NEGATIVE U Cannabinoids Screen POSITIVE H Ur Drug Screen Comment Ethyl Alcohol 10/30/19 10/30/19 04:16 04:16 WBC RBC Hgb Hct MCV MCH MCHC RDW Std Deviation RDW Coeff of Boby Plt Count MPV Immature Gran % (Auto) Neut % (Auto) Lymph % (Auto) [place] % (Auto) Eos % (Auto) Baso % (Auto) Absolute Neuts (auto) Absolute Lymphs (auto) Nucleated RBC % PT INR APTT Specimen Type Sample Site pH Bicarbonate Actual POC Total CO2 Base Excess O2 Saturation O2 % ABG pCO2 ABG pO2 Reji Test Respiration Rate O2 Delivery Device Vent Mode Tidal Volume POC PEEP Blood Gas Notified Whom Blood Gas Notified Time Sodium Potassium Chloride Carbon Dioxide Anion Gap BUN Creatinine Estim Creat Clear Calc Est GFR (MDRD) Af Amer Est GFR (MDRD) Non-Af BUN/Creatinine Ratio Glucose Lactic Acid 7.2 H* Calcium Phosphorus Magnesium Total Bilirubin AST ALT Alkaline Phosphatase Troponin I Total Protein Albumin Globulin Albumin/Globulin Ratio Urine Opiates Screen Urine Methadone Screen Ur Barbiturates Screen Ur Phencyclidine Scrn Ur Amphetamines Screen U Methamphetamin-MDMA U Benzodiazepines Scrn Urine Cocaine Screen U Cannabinoids Screen Ur Drug Screen Comment Ethyl Alcohol < 3.0 Clinical Impression(s) from Imaging Studies Brain CT 10/30/19 02:14 IMPRESSION: Diffuse cerebral edema likely secondary to hypoxia. Acute versus chronic sinusitis. Electronically Signed: Alex Medellin MD at 3:27 EST , Service support , ADDENDUM: 10/30/19 0337 IMPRESSION: Diffuse cerebral edema likely secondary to hypoxia. Acute versus chronic sinusitis. N.B. : The above information has been verbally conveyed by Alex Medellin MD to ER Charge Nurse MELITA Madsen, on 10/30/2019 03:30:24 (ET). Electronically Signed: Alex Medellin MD at 3:27 EST , Service support , Chest X-Ray 10/30/19 02:14 IMPRESSION: Endotracheal tube tip is in its expected location. No acute cardiopulmonary disease. Electronically Signed: Alex Medellin MD at 2:50 EST , Service support , Chest X-Ray 10/30/19 04:00 IMPRESSION: Endotracheal tube and left-sided central line in their expected location. No pneumothorax. No acute cardiopulmonary disease. Probable left basilar subsegmental atelectasis. Developing pneumonia is a consideration. Electronically Signed: Alex Medellin MD at 4:29 EST , Service support , Current Medications Acetaminophen (Tylenol) 650 mg RECTAL Q4H PRN PRN PRN Reason: Pain Score 1-10/Temp > 100.7 F Albuterol Sulfate (Ventolin Aerosols) 2.5 mg INHALATION Q2H PRN PRN PRN Reason: SOB/Wheezing Chlorhexidine Gluconate () 15 ml PO BID SHELIA Enoxaparin Sodium (Lovenox) 40 mg SC DAILY SHELIA Glucagon () 1 mg IM .X1 PRN PRN Reason: Hypoglycemia Norepinephrine Bitartrate 8 mg (/ Sodium Chloride) 250 mls @ 9.375 mls/hr CONT INF .[id number] [facility]; Protocol Last Titration: 10/30/19 03:10 Dose: 20 mcg/min, 37.5 mls/hr Documented by: Sodium Bicarbonate 150 meq/ (Dextrose) 1,150 mls @ 150 mls/hr IV .Q7H40M [facility] Last Admin: 10/30/19 04:45 Dose: 150 mls/hr Documented by: Sodium Chloride () 250 mls @ 15 mls/hr IV .[id number] PRN PRN Reason: Saline Flush Sodium Chloride () 250 mls @ 15 mls/hr IV .[id number] PRN PRN Reason: Additional IVPB Infusion Vasopressin 20 units/ Sodium (Chloride) 25 mls @ 3 mls/hr IV .Q8H20M [facility] Dextrose (Dextrose 10%-Water) 250 mls @ 999 mls/hr IV .Q16M PRN; Protocol PRN Reason: HYPOGLYCEMIA Levetiracetam () 1,000 mg in 100 mls @ 400 mls/hr IV Q12 SHELIA Insulin Human Lispro (Humalog Kwikpen (Bkc)) 0 unit SC Q6 SHELIA; Protocol Ondansetron HCl (Zofran) 4 mg IV Q8H PRN PRN PRN Reason: NAUSEA/VOMITING Sodium Chloride () 10 - 40 ml IV UD PRN PRN Reason: Multilumen/Biswas Flush Sodium Chloride (0.9% Nacl (Sterile) Posiflush) 10 - 40 ml IV UD PRN PRN Reason: Port access or dressing change Sodium Chloride () 10 - 40 ml IV UD PRN PRN Reason: SALINE FLUSH Assessment/Plan RECOMMENDATIONS: 1. Per the patient's family wishes, following a lengthy discussion, palliative withdrawal of life support will be undertaken. 2. CODE STATUS updated to DNR comfort care. IMPRESSIONS: 1. Encephalopathy likely secondary to diffuse anoxic brain injury in the setting of cardiac arrest The patient appears to have sustained a significant anoxic brain insult, likely secondary to prolonged hypoxemia in the setting of cardiac arrest. The patient's examination was consistent with a devastating neurological injury. He is currently comatose and nonresponsive. Following a discussion with the patient's family present at the bedside, they have elected to pursue initiation of comfort care measures and palliative withdrawal of life support. CODE STATUS has been updated to DNR comfort care. 2. Acute hypoxemic and hypercarbic respiratory failure It is certainly plausible that hypoxemia may have been a contributing factor to the patient's acute coronary event. The patient does have an extensive smoking history and may have had undiagnosed COPD. In addition, he may have experienced a seizure. Regardless, the exact amount of time that elapsed from the time he went to bed until the time he was discovered is unknown. 3. Shock of unclear etiology The patient was notably hypotensive, requiring the initiation of vasopressor support on admission to the ICU. Clinical considerations include that for distributive versus obstructive shock. While I cannot discount the possibility of a cardiogenic component, the patient's initial troponin level was negative. He was maintained on vasopressor support to maintain hemodynamic stability until the decision was made to withdraw life support. 4. Acute kidney injury/anion gap metabolic acidosis/lactic acidemia Likely secondary to ischemic ATN in the setting of hypotension. 5. Mild shock liver Again, likely secondary to hemodynamic instability in the setting of the patient's acute presentation. 6. Personal history of polysubstance dependency/epilepsy Complicates care, management, recovery and prognosis. Although there was consideration for nonconvulsive seizure activity, the patient CT head clearly demonstrated findings concerning for anoxic brain injury. Consideration was given to obtaining a neurology consultation. However, the patient's family elected to pursue palliative withdrawal of life support prior to this being completed. TIME: 45 minutes of critical care time, independent of procedures, was spent addressing the patient's encephalopathy, anoxic brain injury, cardiac arrest, acute combined respiratory failure, undifferentiated shock, acute kidney injury, lactic acidemia, shock liver, review of all data and collaboration with the care team. ([id number]) Code Visit [id number]: [id number] Critical care first hour
--- NOTE | 2019-10-30 06:41 | NURSING ---
Family is withdrawing care and would like for us not to do ventilator oral care at this time.
--- NOTE | 2019-10-30 06:41 | NURSING ---
Spoke with Kitty from [facility], she states,Go ahead and withdrawl care, Pt is not a candidate for organ donation, please call hotline after cardiac because pt may be an organ and tissue candidate. Dr. Appiah made aware. Dr. Appiah and primary RN Quinton Lutz speaking with family at this time.
[2019-10-30 06:43] LABS: Magnesium 3.5 mg/dL (1.6-2.6); Phosphorus 12.6 mg/dL (2.5-4.9)
--- NOTE | 2019-10-30 06:45 | NURSING ---
Levophed not titrated due to family withdrawing care. Dr Appiah aware and Dr Forrest also aware.
[2019-10-30] MEDS: LORazepam 2 MG/ML Syringe IV (07:05)
[2019-10-30] MEDS: Morphine 2 MG/ML Syringe IV (07:05)
--- NOTE | 2019-10-30 07:23 | NURSING ---
Pt was terminally extubated at 0705, By Dr Appiah and Lucita RAHMAN. Patient passed at 07:18 with Mother and Step Father at bedside.
--- NOTE | 2019-10-30 08:12 | CPS ---
Patient terminally extubated at 0705. at bedside.
[2019-10-30 08:20] LABS: Reflex Lactate? Y
--- NOTE | 2019-10-30 19:36 | PCM.DEATH ---
Preliminary Cause of Anoxic brain injury Date of Admission: 10/30/19 Date of : 10/30/19 - Principle Diagnosis #1 anoxic brain injury secondary to sudden cardiac #2 sudden cardiac secondary to cardiac arrhythmia #3 acute hypoxic respiratory failure Hospital Course 48-year-old male was seen in the emergency room at [facility] after being brought in by [facility] who received a call for evaluation of a patient with altered mental status and unresponsiveness, on their arrival, the squad noted that the patient was unconscious in asystole, CPR was given for 18 minutes, 3 rounds of epinephrine were given, they were able to get a return of circulation with the patient, witnesses at the scene stated that the patient was alert prior to this episode and told people in his house he was going to lay down to go to sleep and they noticed patient was not sleeping and was unconscious and unable to be awakened. [facility] was ultimately called for evaluation of the patient. On arrival to the emergency room, patient was given epinephrine and 3 A of bicarbonate and 1 amp of calcium, patient was noted to be in sinus rhythm with a good carotid pulse, there is noted to be ST depressions anterior lateral, a STEMI was not noted on the EKG. Cardiology came to the ER to evaluate the patient, cardiology agreed the patient did not have a STEMI pattern and IV fluids were given and the patient was intubated. Patient was started on Levophed, CT of the head was obtained which showed diffuse anoxic edema with loss of levy-white matter differentiation. Patient was started on bicarb drip for a pH of 7 on his blood gases. Patient's liver enzymes were elevated indicating probable shock liver. Creatinine was elevated. Patient's pupils were noted to be fixed and dilated and he showed no ocular movements. A left sided subclavian central line was placed without difficulty. Patient's family arrived the case was discussed with the disability specialist as well as the hospitalist, family requested the patient be a DO NOT RESUSCITATE Comfort Care arrest of his heart was to stop again. Urine toxicology showed marijuana only. Patient was admitted to ICU, further conversations were carried out with the patient's family and it was decided that the patient would be extubated and terminally weaned. Patient was extubated and the patient at 7:18 AM 10/30/2019. Patient was not seen by this examiner prior to expiration.
== END 2019-10-30 07:18 | DRG 59 ==
LOC: ED 04:45 → ICU 05:25
PROVIDERS: Admitting Provider Hospitalist; Emergency Provider Emergency Medicine; Family Provider Family Medicine; PCP Family Medicine; Referring Provider Hospitalist; Visit Provider Internal Medicine
DX: G93.1 Anoxic brain damage, not elsewhere classified (principal); I49.9 Cardiac arrhythmia, unspecified; R57.0 Cardiogenic shock; E87.4 Mixed disorder of acid-base balance; R73.9 Hyperglycemia, unspecified; G40.909 Epilepsy, unspecified, not intractable, without status epilepticus; Z66 Do not resuscitate; F17.210 Nicotine dependence, cigarettes, uncomplicated; N17.9 Acute kidney failure, unspecified; G93.6 Cerebral edema; R40.2432 Glasgow coma scale score 3-8, at arrival to emergency department; K72.00 Acute and subacute hepatic failure without coma; J96.01 Acute respiratory failure with hypoxia
CPT/HCPCS: 31500; 36600; 51702; 70450; 71045; 74018; 80053; 80307; 80320; 82803; 83605; 83735; 84100; 84484; 85025; 85610; 85730; 92950; 93005; 94002; 99285; J7030; J7050; A4216; C1751; G0480